=== PATIENT | female | born 1980 | race Two or more races ===

== ENCOUNTER 2017-11-05 09:40 | Inpatient (IN) | payer MEDICAID ==
[~2017-11-05] VITALS: Ht 160 cm; Wt 115.7 kg
[2017-11-05 10:44] LABS: Basophils # (auto) 0.1 uL; Basophils % (auto) 0.9 % (0.0-2.0); Eosinophils # (auto) 0 uL; Eosinophils % (auto) 0.1 % (0.0-7.0); Hemoglobin 8.7 g/dL (12.2-16.2); Lymphocytes # (auto) 0.4 uL; Mean Corpuscular Hemoglobin 18.7 pg (28.0-32.0); Monocytes # (auto) 0.3 uL; Neutrophils # (auto) 6.2 uL
[2017-11-05 10:45] LABS: Lymphocytes % (auto) 5.8 % (10.0-50.0); Mean Corpuscular Volume 62.4 fL (80.0-100.0); Monocytes % (auto) 4.3 % (0.0-12.0); Neutrophils % (auto) 88.9 % (37.0-80.0); Platelet Count (auto) 427 10^3/uL (140-450); Red Blood Cells 4.65 10^6/uL (4.0-5.20); Red Cell Distribution Width 18.4 % (11.8-14.3)
[2017-11-05 11:06] LABS: Albumin 3.6 g/dL (3.4-5.0); BUN/Creatinine Ratio 7.9; Bilirubin, Total 0.4 mg/dL (0.2-1.0); Calcium 8.3 mg/dL (8.5-10.1); Potassium 3.3 mmol/L (3.5-5.1); Total Protein 7.9 g/dL (6.4-8.2)
[2017-11-05 11:07] LABS: Urine Bacteria FEW /hpf (None Seen); Urine Blood 1+ /uL (Negative); Urine Mucus MODERATE (None Seen); Urine Specific Gravity 1.019 (1.001-1.035); Urine WBC 15 /hpf (0 - 5)
[2017-11-05] MEDS ORDERED: PANTOPRAZOLE 40 MG/10 ML VIAL IV STA (13:01)
[2017-11-05] MEDS ORDERED: SODIUM CHLORIDE 0.9% 500 ML IVB ONE (13:01)
[2017-11-05] MEDS ORDERED: MORPHINE SULFATE 4 MG/ML SYR/VIAL IV ONE (13:15)
[2017-11-05] MEDS ORDERED: ONDANSETRON HCL 4 MG/2 ML VIAL IV ONE (13:15)
[2017-11-05] MEDS ORDERED: ACETAMINOPHEN 500 MG TAB PO PRN (16:00)
[2017-11-05] MEDS ORDERED: PROMETHAZINE HCL 25 MG/ML 1ML IV PRN (16:00)
[2017-11-05] MEDS ORDERED: NITROGLYCERIN 0.4 MG SL TAB SL PRN (16:00)
[2017-11-05] MEDS ORDERED: HYDROcodone-ACET 5/325MG TAB PO PRN (16:00)
[2017-11-05] MEDS ORDERED: MORPHINE SULFATE 10 MG/ML INJ 1ML SDV IV PRN ×2 (16:00)
[2017-11-05] MEDS ORDERED: TEMAZEPAM 15 MG CAP PO PRN (16:00)
[2017-11-05] MEDS ORDERED: LORazepam 0.5 MG TAB PO PRN (16:00)
[2017-11-05] MEDS ORDERED: cefTRIAXone 1GM/10ml IVPUSH 10 ML IV ONE (16:00)
[2017-11-05 16:28] LABS: CRP High Sensitivity 6.36 mg/dL (< 0.3)
[2017-11-05] MEDS: SOD CHL 0.9%/ KCL 20MEQ 1,000 ML IV SCH (16:59)
[2017-11-05] MEDS: FAMOTIDINE (10MG/ML) 2ML VL IV SCH (17:05)
[2017-11-06] MEDS: SOD CHL 0.9%/ KCL 20MEQ 1,000 ML IV SCH ×2 (00:38→10:27)
[2017-11-06] MEDS: FAMOTIDINE (10MG/ML) 2ML VL IV SCH ×2 (05:10→16:48)
[2017-11-06 05:40] VITALS: BP 107/63
[2017-11-06 06:45] LABS: Basophils # (auto) 0.1 uL; Hemoglobin 7.8 g/dL (12.2-16.2); Lymphocytes # (auto) 1.2 uL; Monocytes # (auto) 0.5 uL; Neutrophils # (auto) 1.6 uL; Platelet Count (auto) 343 10^3/uL (140-450); White Blood Cell 3.5 10^3/uL (4.4-10.8)
[2017-11-06 06:48] LABS: Basophils % (auto) 2.3 % (0.0-2.0); Eosinophils # (auto) 0.1 uL; Hematocrit 26.4 % (36.0-46.0); Lymphocytes % (auto) 33.8 % (10.0-50.0); Mean Corpuscular Hgb Conc. 29.5 g/dL (32.0-36.0); Mean Corpuscular Volume 64.3 fL (80.0-100.0); Monocytes % (auto) 14.1 % (0.0-12.0); Neutrophils % (auto) 45.8 % (37.0-80.0); Nucleated Red Blood Cells % 0.1 %; Red Cell Distribution Width 18.9 % (11.8-14.3)
[2017-11-06 06:59] LABS: BUN/Creatinine Ratio 9.1; Calcium 8.2 mg/dL (8.5-10.1); Potassium 3.7 mmol/L (3.5-5.1)
[2017-11-06 07:01] LABS: Bilirubin, Total 0.2 mg/dL (0.2-1.0); Total Protein 6.6 g/dL (6.4-8.2)
[2017-11-06 07:08] LABS: Cholesterol 101 mg/dL (< 200); HDL Cholesterol 37 mg/dL (40-59); LDL Cholesterol 65 mg/dL (< 100); Triglycerides 64 mg/dL (< 150)
[2017-11-06 09:00] VITALS: BP 114/70
[2017-11-06] MEDS ORDERED: cefTRIAXone 1GM/10ml IVPUSH 10 ML IV SCH (09:00)
[2017-11-06] MEDS ORDERED: ENOXAPARIN SOD 40 MG/0.4 ML SYRINGE SC SCH (10:00)
[2017-11-06 13:00] VITALS: BP 111/64
[2017-11-06] MEDS ORDERED: SODIUM FERR GLUC 62.5MG/5ML 125 MG in SODIUM CHL 0.9% 100 ML IV ONE (14:45)
[2017-11-06 16:57] VITALS: BP 111/64
[2017-11-06 17:27] VITALS: BP 129/72
[2017-11-06 18:02] VITALS: BP 129/72
== END 2017-11-06 18:25 | disposition home or self-care (01) | DRG 663 ==
LOC: ER 09:40 → TELE 09:41 → TELE-WESTW 23:35
PROVIDERS: ADMIT Internal Medicine; ATTEND Internal Medicine
DX: D50.0 Iron deficiency anemia secondary to blood loss (chronic) (principal); K76.0 Fatty (change of) liver, not elsewhere classified; E87.1 Hypo-osmolality and hyponatremia; N39.0 Urinary tract infection, site not specified; Z68.42 Body mass index [BMI] 45.0-49.9, adult; F17.210 Nicotine dependence, cigarettes, uncomplicated; A08.4 Viral intestinal infection, unspecified; E66.01 Morbid (severe) obesity due to excess calories; E87.6 Hypokalemia; N92.0 Excessive and frequent menstruation with regular cycle; Z83.3 Family history of diabetes mellitus; Z90.49 Acquired absence of other specified parts of digestive tract
CPT/HCPCS: 36415; 76705; 80053; 80061; 81001; 81025; 82150; 82270; 83690; 84443; 85025; 85652; 86141; 87086; 87400; 87493; 94761; 96361; 96374; 96375; C9113; J2405; J3490

== ENCOUNTER 2023-09-07 19:46 | Emergency (ER) | payer MEDICAID, OTHER ==
[~2023-09-07] VITALS: Ht 170.2 cm; Wt 104.5 kg
[2023-09-07] MEDS ORDERED: KETOROLAC TROMETH 30 MG/ML 1ML VIAL IM ONE (23:45)
[2023-09-07] MEDS ORDERED: CYCL-837 PO (23:52)
[2023-09-07] MEDS ORDERED: HYDR-4902 PO (23:52)
[2023-09-08 00:10] VITALS: BP 115/79; PULSE 91; RESP 18; TEMP 98.2; O2SAT 97
== END 2023-09-08 00:20 | disposition home or self-care (01) ==
LOC: EDBD 19:46 → ER 19:46
DX: S16.1XXA Strain of muscle, fascia and tendon at neck level, initial encounter (principal); R51.9 Headache, unspecified; I10 Essential (primary) hypertension; M79.642 Pain in left hand; M25.512 Pain in left shoulder; F17.210 Nicotine dependence, cigarettes, uncomplicated; Z90.49 Acquired absence of other specified parts of digestive tract; V89.2XXA Person injured in unspecified motor-vehicle accident, traffic, initial encounter; Y93.89 Activity, other specified; Y92.89 Other specified places as the place of occurrence of the external cause; Y99.8 Other external cause status
CPT/HCPCS: 70450; 71250; 72125; 73130; 73552; 74176; 96372; 99285; J1885